=== PATIENT | female | born 1970 | race Caucasian/White ===

== ENCOUNTER 2021-02-10 16:54 | Outpatient (REF) | payer MEDICAID, SELFPAY ==
--- NOTE | ~2021-02-10 | CT_ITS ---
EXAMINATION: CT SOFT TISSUE NECK WITHOUT CONTRAST CLINICAL INFORMATION: Left-sided lymphadenopathy. History of MS. COMPARISON: None available. TECHNIQUE: Helical imaging of the neck was performed in the axial plane with generation of coronal and sagittal reformatted images without contrast. This CT examination was performed using dose optimization techniques as appropriate, variously including the following: *Automated exposure control *Adjustment of mA and/or kV according to patient size (this includes techniques or standardized protocols for targeted exams where dose is matched to indication/reason for exam; i.e. extremities or head) *Use of iterative reconstruction technique FINDINGS: A palpable marker has been placed on the left lateral neck just beneath the left parotid tail. There is a mildly enlarged left jugular digastric lymph node measuring 1.6 cm in long transaxial dimension adjacent to the site of palpable abnormality. This lymph node is nonspecific and may be reactive. There are additional nonpathologic size criteria lymph nodes throughout the suprahyoid and infrahyoid neck bilaterally. Asymmetrically prominent right palatine tonsil that can be correlated with direct visual inspection. The parotid glands are homogeneous in attenuation. The submandibular glands are normal. The thyroid gland is normal. Limited assessment of the superficial mucosal spaces given the lack of contrast. No retropharyngeal fluid collection is seen. The laryngeal structures are normal. The parapharyngeal fat is preserved. The superior mediastinum is unremarkable. The lung apices are clear. The mastoid air cells and visualized portions of the paranasal sinuses are well-aerated. There is bandlike soft tissue above fluid density within the sella turcica making it difficult to exclude the presence of a pituitary cyst. Recommend correlating with endocrine function tests and a pituitary protocol MRI as clinically indicated. 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 No left lens is identified. Ophthalmologic correlation advised. 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 No left lens is identified. Ophthalmologic correlation advised. - A palpable marker has been placed on the left lateral neck just beneath the left parotid tail. There is a mildly enlarged left jugular digastric lymph node measuring 1.6 cm in long transaxial dimension adjacent to the site of palpable abnormality. This lymph node is nonspecific and may be reactive. There are additional nonpathologic size criteria lymph nodes throughout the suprahyoid and infrahyoid neck bilaterally. - Asymmetrically prominent right palatine tonsil that can be correlated with direct visual inspection. - There is bandlike soft tissue above fluid density within the sella turcica making it difficult to exclude the presence of a pituitary cyst. Recommend correlating with endocrine function tests and a pituitary protocol MRI as clinically indicated. The left retinal hemorrhage findings were discussed with Dr. Lerma at 12:25 PM on 02/12/2021.
== END 2021-02-10 16:55 | disposition home or self-care (01) ==
LOC: HO.CT 16:54
PROVIDERS: PCP Nurse Practitioner Family; Visit Provider Family Medicine
DX: R59.0 Localized enlarged lymph nodes (principal)
CPT/HCPCS: 70490